=== PATIENT | female | born 1970 | race Caucasian/White ===

== ENCOUNTER 2016-03-29 04:15 | Emergency (ER) | payer OTHER ==
[~2016-03-29] VITALS: Ht 170.2 cm; Wt 104.2 kg
[~2016-03-29 04:15] MED LIST: 5-HTP100 MG PO; ATARAX,VISTARIL25 MG PO; BACTRIM,SEPT1 TABLET PO; BUSPAR15 MG PO; CLEOCIN150 MG PO; CLINDAMYCIN HC300 MG PO; Colace PO; Feosol PO; HYDROCHLOROTH12.5 M3 PO; IBUPROFEN600 MG PO; IVERMECTIN3 MG PO; KEPPRA500 MG PO; LISINOPRIL20 MG PO; LISINOPRIL5 MG PO; LORTAB 5-500 T1 EACH PO; METFORMIN HCL500 M4 PO; METFORMIN HCL500 MG PO; NAPROSYN500 MG PO; PERCOCET 5/31 TABLET PO; PREDNISONE20 MG PO; VENLAFAXINE HCL75 M3 PO; ZANTAC150 MG PO; ZOFRAN ODT4 MG PO
[2016-03-29 04:56] LABS: MCHC 33.3 G/DL (30.0-36.0); MCV 89.9 FL (83-99); MEAN PLAT.VOLUME 10.4 uM^3 (9.5-12.4); PLATELET COUNT 234 K/uL (156-360); RBC DIS.WIDTH-SD 41.8 % (39-53); RED BLOOD COUNT 4.34 M/uL (3.80-5.20); WHITE BLOOD COUNT 8.4 K/uL (4.1-10.2)
[2016-03-29 05:07] LABS: CHLORIDE 106 mEq/L (99-109); POTASSIUM 3.7 mEq/L (3.7-5.4); SODIUM 140 mEq/L (136-147)
[2016-03-29 05:09] LABS: GLUCOSE 147 mg/dL (70-99)
[2016-03-29 05:10] LABS: ANION GAP 7 MEQ/L (2-14)
[2016-03-29 05:11] LABS: TOTAL BILIRUBIN 0.2 mg/dL (0.0-1.0)
[2016-03-29 05:12] LABS: ALKALINE PHOSPHATASE 73 IU/L (3-129)
[2016-03-29 05:13] LABS: GFR ESTIMATE (CALCULATED) > 59 mL/min/
[2016-03-29 05:14] LABS: UREA NITROGEN (BUN) 9 mg/dL (9-23)
[2016-03-29 05:16] LABS: LIPASE 24 U/L (1.0-51.0)
[2016-03-29 05:22] LABS: QUANTITATIVE HCG < 4.0 MIU/ML
[2016-03-29 08:23] LABS: ADD MIUA? YES; BILIRUBIN NEGATIVE; BLOOD TRACE; GLUCOSE (STRIP) NEGATIVE; KETONES NEGATIVE; LEUKOCYTES SMALL; NITRITE POSITIVE; PROTEIN (STRIP) NEGATIVE; SPECIFIC GRAVITY 1.013 (1.000-1.030); UROBILINOGEN 0.2 MG/DL (0.2-1.0)
[2016-03-29 08:24] LABS: COLOR LT YELLOW ((YELLOW))
[2016-03-29 08:35] LABS: BACTERIA 4+; CASTS NONE SEEN /LPF; CRYSTALS NONE SEEN; EPITHELIAL CELLS 2+; MUCUS NONE SEEN; PATHOLOGICAL CAST NONE SEEN; SMALL ROUND CELL NONE SEEN; UCUL ADDED? YES; WHITE BLOOD CELLS 20-30 /HPF (0-5); YEAST-LIKE CELL NONE SEEN
[2016-03-29] MEDS ORDERED: COLACE100 MG PO (12:47)
[2016-03-29] MEDS ORDERED: MACROBID100 MG PO (12:47)
[2016-03-29 12:59] VITALS: BP 126/61
== END 2016-03-29 13:00 | disposition home or self-care (01) ==
LOC: EME 04:15
DX: N39.0 Urinary tract infection, site not specified (principal); R16.0 Hepatomegaly, not elsewhere classified; K57.90 Diverticulosis of intestine, part unspecified, without perforation or abscess without bleeding; K59.00 Constipation, unspecified; E11.9 Type 2 diabetes mellitus without complications; Z79.84 Long term (current) use of oral hypoglycemic drugs; Z88.2 Allergy status to sulfonamides; Z88.0 Allergy status to penicillin; Z88.6 Allergy status to analgesic agent
CPT/HCPCS: 74020; 74176; 76705; 80053; 81003; 83690; 84702; 85027; 87077; 87086; 87186; 99281; 99285; J2270; J2405; J7030

== ENCOUNTER 2017-01-06 23:06 | Emergency (ER) | payer OTHER ==
[~2017-01-06] VITALS: Ht 170.2 cm; Wt 97.3 kg
[~2017-01-06 23:06] MED LIST changes: +COLACE100 MG PO; +MACROBID100 MG PO
[2017-01-07] MEDS ORDERED: NORCO 5/3251 TABLET PO (01:47)
[2017-01-07] MEDS ORDERED: MEDROL DOSEPAK4 MG PO (01:47)
[2017-01-07] MEDS ORDERED: LIDODERM 5% P1 PATCH TD (01:47)
[2017-01-07 03:08] VITALS: BP 122/91
== END 2017-01-07 03:09 | disposition home or self-care (01) ==
LOC: EME 23:06
DX: S60.415A Abrasion of left ring finger, initial encounter (principal); L30.9 Dermatitis, unspecified; W49.04XA Ring or other jewelry causing external constriction, initial encounter; Z88.0 Allergy status to penicillin; Z88.8 Allergy status to other drugs, medicaments and biological substances
CPT/HCPCS: 99281; 99283

== ENCOUNTER → 2017-06-08 | Outpatient (CLI) | payer OTHER ==
[~2017-06-08] MED LIST changes: +HYDROCODON-ACE1 EAC7 PO; +IBUPROFEN800 MG PO; +LIDODERM 5% P1 PATCH TD; +MEDROL DOSEPAK4 MG PO; +NORCO 5/3251 TABLET PO
== END | disposition home or self-care (01) ==
LOC: PICC 08:22
DX: M86.9 Osteomyelitis, unspecified (principal); Z88.0 Allergy status to penicillin; Z88.1 Allergy status to other antibiotic agents; Z88.8 Allergy status to other drugs, medicaments and biological substances
CPT/HCPCS: 76937